=== PATIENT | male | born 1965 | race Caucasian/White ===

== ENCOUNTER 2024-11-01 11:52 | Inpatient (IN) | payer MEDICARE, OTHER ==
[~2024-11-01] VITALS: Ht 177.8 cm; Wt 97.1 kg
[2024-11-01 12:38] LABS: BASOPHILS # (AUTO) 0.1 K/UL (0.0-0.2); BASOPHILS % (AUTO) 0.9 % (0.0-2.0); EOSINOPHILS # (AUTO) 0.4 K/uL (0.0-0.7); EOSINOPHILS % (AUTO) 5.6 % (0.0-7.0); HEMATOCRIT 38.5 % (36.7-47.1); HEMOGLOBIN 12.8 g/dL (12.5-16.3); LYMPHOCYTES # (AUTO) 1.4 K/uL (0.8-4.8); LYMPHOCYTES % (AUTO) 20.8 % (20.5-51.5); MEAN CORPUSCULAR HEMOGLOBIN 28.9 uug (23.8-33.4); MEAN CORPUSCULAR HGB CONC 33 g/dL (32.5-36.3); MEAN CORPUSCULAR VOLUME 87.2 fL (73.0-96.2); MONOCYTES # (AUTO) 0.4 K/uL (0.1-1.30); MONOCYTES % (AUTO) 5.9 % (0.0-11.0); NEUTROPHILS # (AUTO) 4.6 K/uL (1.8-8.9); NEUTROPHILS % (AUTO) 66.8 % (38.5-71.5); PLATELET COUNT (AUTO) 472 K/uL (152-348); RED BLOOD CELL COUNT(AUTO) 4.42 MIL/uL (4.06-5.63); RED CELL DISTRIBUTION WIDTH 16.6 % (12.1-16.2); WHITE BLOOD COUNT (AUTO) 6.9 K/uL (3.6-10.2)
[2024-11-01 12:39] LABS: DIFFERENTIAL COMMENT 1
[2024-11-01 12:44] LABS: *BILIRUBIN,URIN NEGATIVE (NEGATIVE); *CLARITY,URINE CLEAR (CLEAR); *COLOR,URINE YELLOW (YELLOW); *KETONES,URINE NEGATIVE (NEGATIVE); *PROTEIN,URINE NEGATIVE (NEGATIVE); *UROBILINOGEN,URINE 0.2 E.U./dl (NORMAL); LEUKOCYTE ESTERASE ,URINE NEGATIVE (NEGATIVE); NITRITE, URINE NEGATIVE (NEGATIVE); PH,URINE 7.5 (5.0-8.0); UGLUCOSE NEGATIVE (NEGATIVE)
[2024-11-01 12:45] LABS: *BLOOD, URINE TRACE (NEGATIVE)
[2024-11-01 13:09] LABS: CALCIUM 9.1 mg/dL (8.5-10.1); CARBON DIOXIDE 31 mmol/L (21-32); CHLORIDE 100 mmol/L (98-107); CREATININE 1.2 mg/dL (0.6-1.3); GLUCOSE 129 mg/dL (74-106); RBC,URINE 0-3 /HPF (0-3); SODIUM SERUM 140 mmol/L (136-145); UREA NITROGEN, BLOOD 16 mg/dL (7-18); WBC,URINE 0-3 /HPF (0-3)
[2024-11-01] MEDS ORDERED: DOCU-141 PO (13:11)
[2024-11-01] MEDS ORDERED: ACET-3117 PO (13:11)
[2024-11-01] MEDS ORDERED: EMOL113C2 TP (13:11)
[2024-11-01] MEDS ORDERED: ASPI-1169 PO (13:11)
[2024-11-01] MEDS ORDERED: BENZ0.5T43 PO (13:11)
[2024-11-01] MEDS ORDERED: AMLO-212 PO (13:11)
[2024-11-01] MEDS ORDERED: DEXT50VI3 IV (13:11)
[2024-11-01] MEDS ORDERED: CITA20TA19 PO (13:11)
[2024-11-01 13:13] LABS: ETHANOL < 3 MG/DL (0-10)
[2024-11-01 13:14] LABS: *AMPHETAMINE, URINE NEGATIVE (NEGATIVE); *BARBITURATE, URINE NEGATIVE (NEGATIVE); *BENZODIAZEPINE, URINE NEGATIVE (NEGATIVE); *CANNABINOID, URINE NEGATIVE (NEGATIVE); *COCCAINE, URINE NEGATIVE (NEGATIVE); *OPIATE, URINE NEGATIVE (NEGATIVE); *PHENCYCLIDINE SCREEN,URINE NEGATIVE (NEGATIVE); FENTANYL, URINE NEGATIVE (NEGATIVE)
[2024-11-01 13:15] LABS: ACETAMINOPHEN < 2.0 ug/mL (10-30); ALANINE AMINOTRANSFERASE 16 U/L (16-63); ALBUMIN 3.6 g/dL (3.4-5.0); ALKALINE PHOSPHATASE 50 U/L (50-136); ASPARTATE AMINOTRANSFERASE 25 U/L (15-37); BILIRUBIN,DIRECT 0.1 mg/dL (0.0-0.2); BILIRUBIN,TOTAL 0.3 mg/dL (0.2-1.0); TOTAL PROTEIN, SERUM 8.8 g/dL (6.4-8.2)
[2024-11-01] MEDS ORDERED: DIPH25TA27 PO (13:37)
[2024-11-01] MEDS ORDERED: DIVA500T54 PO (13:37)
[2024-11-01] MEDS ORDERED: GLUC1KIT IJ (13:46)
[2024-11-01] MEDS ORDERED: FINA5TAB11 PO (13:46)
[2024-11-01] MEDS ORDERED: FENO145T21 PO (13:46)
[2024-11-01] MEDS ORDERED: BISA10SU12 RC (13:46)
[2024-11-01] MEDS ORDERED: GABA300C PO (13:46)
[2024-11-01] MEDS ORDERED: NA P133E RC (13:46)
[2024-11-01] MEDS ORDERED: DONE10TA44 PO (13:46)
[2024-11-01] MEDS ORDERED: DEXT38GE12 PO (13:53)
[2024-11-01] MEDS ORDERED: INSU100V28 (14:07)
[2024-11-01] MEDS ORDERED: FURO40TA5 PO (14:19)
[2024-11-01] MEDS ORDERED: ATOR20TA PO (14:19)
[2024-11-01] MEDS ORDERED: MIRT7.5T10 PO (14:19)
[2024-11-01] MEDS ORDERED: MAGN400O6 PO (14:19)
[2024-11-01] MEDS ORDERED: LEVO75TA7 PO (14:19)
[2024-11-01] MEDS ORDERED: METF-442 PO (14:19)
[2024-11-01] MEDS ORDERED: MELA10TA PO (14:19)
[2024-11-01] MEDS ORDERED: QUET300T2 PO (14:28)
[2024-11-01] MEDS ORDERED: THIO10CA2 PO (14:28)
[2024-11-01] MEDS ORDERED: MULT-225 PO (14:28)
[2024-11-01] MEDS ORDERED: PSEU120T99 PO (14:28)
[2024-11-01] MEDS ORDERED: TERA2CAP4 PO (14:28)
[2024-11-01] MEDS ORDERED: PIOG30TA10 PO (14:28)
[2024-11-01] MEDS ORDERED: NYST15CR TP (14:28)
[2024-11-01] MEDS: BLOOD SUGAR DIAGNOSTIC 1 EACH STRIP VI ONE (16:45)
[2024-11-01] MEDS ORDERED: MAGNESIUM HYDROXIDE 30 ML LIQUID UDC PO PRN (16:45)
[2024-11-01] MEDS ORDERED: QUETIAPINE FUMARATE 25 MG TABLET PO PRN (16:45)
[2024-11-01] MEDS ORDERED: MAG HYDROX/AL HYDROX/SIMETH 30 ML LIQUID UDC PO PRN (16:45)
[2024-11-01] MEDS ORDERED: ACET325T53 PO (16:49)
[2024-11-01] MEDS ORDERED: BISACODYL 10 MG SUPP.RECT RC PRN (17:45)
[2024-11-01 20:13] VITALS: BP 134/74; TEMP 98.1; O2SAT 98
[2024-11-01] MEDS ORDERED: ZOLPIDEM 5 MG TABLET PO PRN (20:45)
[2024-11-01] MEDS: ATORVASTATIN 20 MG TABLET PO SCH (21:29)
[2024-11-01] MEDS: TERAZOSIN 1 MG CAPSULE PO SCH (21:29)
[2024-11-01] MEDS: PERMETHRIN 5% CREAM 60 GM TUBE TP ONE (21:31)
[2024-11-02 06:43] LABS: BASOPHILS # (AUTO) 0.1 K/UL (0.0-0.2); BASOPHILS % (AUTO) 0.9 % (0.0-2.0); EOSINOPHILS # (AUTO) 0.5 K/uL (0.0-0.7); EOSINOPHILS % (AUTO) 8.1 % (0.0-7.0); HEMATOCRIT 36.3 % (36.7-47.1); HEMOGLOBIN 12.1 g/dL (12.5-16.3); LYMPHOCYTES # (AUTO) 1.4 K/uL (0.8-4.8); LYMPHOCYTES % (AUTO) 21.3 % (20.5-51.5); MEAN CORPUSCULAR HEMOGLOBIN 28.7 uug (23.8-33.4); MEAN CORPUSCULAR HGB CONC 33 g/dL (32.5-36.3); MEAN CORPUSCULAR VOLUME 86.4 fL (73.0-96.2); MONOCYTES # (AUTO) 0.5 K/uL (0.1-1.30); MONOCYTES % (AUTO) 8.3 % (0.0-11.0); NEUTROPHILS % (AUTO) 61.4 % (38.5-71.5); PLATELET COUNT (AUTO) 449 K/uL (152-348); RED CELL DISTRIBUTION WIDTH 16.2 % (12.1-16.2); WHITE BLOOD COUNT (AUTO) 6.6 K/uL (3.6-10.2)
[2024-11-02] MEDS: LEVOTHYROXINE SODIUM 75 MCG TABLET PO SCH (06:55)
[2024-11-02 07:02] LABS: DIFFERENTIAL COMMENT 1
[2024-11-02 07:29] LABS: BILIRUBIN,TOTAL 0.2 mg/dL (0.2-1.0); CALCIUM 8.5 mg/dL (8.5-10.1); CREATININE 1.3 mg/dL (0.6-1.3); POTASSIUM 4.6 mmol/L (3.5-5.1); TOTAL PROTEIN, SERUM 7.3 g/dL (6.4-8.2)
[2024-11-02 07:44] VITALS: BP 136/69; TEMP 98; O2SAT 98
[2024-11-02] MEDS: FINASTERIDE 5 MG TABLET PO SCH (08:28)
[2024-11-02] MEDS: ASPIRIN 81 MG TAB.CHEW PO SCH (08:28)
[2024-11-02] MEDS: DOCUSATE SODIUM 100 MG CAPSULE PO SCH (08:28)
[2024-11-02] MEDS: AMLODIPINE 5 MG TABLET PO SCH (08:28)
[2024-11-02] MEDS: GABAPENTIN 300 MG CAPSULE PO SCH (08:29)
[2024-11-02] MEDS: FUROSEMIDE 40 MG TABLET PO SCH (08:30)
[2024-11-02] MEDS: FENOFIBRATE NANOCRYSTALLIZED 145 MG TABLET PO SCH (08:30)
[2024-11-02] MEDS: PIOGLITAZONE HCL 15 MG TABLET PO SCH (08:31)
[2024-11-02] MEDS ORDERED: PIOGLITAZONE HCL 30 MG PO SCH (09:00)
[2024-11-02] MEDS ORDERED: THIOTHIXENE 10 MG CAPSULE PO SCH (09:00)
[2024-11-02] MEDS ORDERED: GABAPENTIN 300 MG CAPSULE PO SCH (09:00)
[2024-11-02] MEDS: risperiDONE 0.5 MG TABLET PO SCH (11:55)
[2024-11-02] MEDS ORDERED: DEXTROSE 50% 50 ML DISP.SYRIN IV PRN (13:45)
[2024-11-02] MEDS ORDERED: DIVALPROEX 125 MG TABLET.DR PO SCH (14:00)
[2024-11-02] MEDS: DIVALPROEX 250 MG TABLET.DR PO SCH (15:42)
[2024-11-02] MEDS: BLOOD SUGAR DIAGNOSTIC 1 EACH STRIP VI SCH (16:40)
[2024-11-02] MEDS: diphenhydrAMINE 25 MG CAP PO PRN (18:18)
[2024-11-03] VITALS (7 sets, daily range): BP systolic 120–134; BP diastolic 62–70; TEMP 98–99; O2SAT 95–99
[2024-11-03] MEDS: ACETAMINOPHEN 325 MG TABLET PO PRN (05:36)
[2024-11-03] MEDS: ALBUTEROL SULFATE 2.5 MG/3 ML NEBU NEB PRN (07:53)
[2024-11-03] MEDS: IPRATROPIUM BROMIDE 0.5 MG/2.5 ML NEBU NEB PRN (07:53)
[2024-11-03] MEDS: GLUCERNA SHAKE 237 ML CAN PO SCH (09:06)
[2024-11-03] MEDS: risperiDONE 0.5 MG TABLET PO ONE (11:01)
[2024-11-03] MEDS: INSULIN REGULAR, HUMAN 1000 UNIT/10 ML VIAL SQ PRN (11:38)
[2024-11-03] MEDS: risperiDONE 0.5 MG TABLET PO SCH (20:53)
[2024-11-04 08:02] VITALS: BP 129/72; TEMP 98.3; O2SAT 96
[2024-11-04] MEDS: PROPRANOLOL HCL 10 MG TABLET PO SCH (13:15)
[2024-11-04] MEDS: DIVALPROEX 500 MG TABLET.DR PO SCH (13:57)
[2024-11-04] MEDS: BENZTROPINE MESYLATE 0.5 MG TABLET PO SCH (13:59)
[2024-11-04] MEDS ORDERED: DIVALPROEX 250 MG TABLET.DR PO SCH (14:00)
[2024-11-04 16:02] VITALS: BP 141/76; TEMP 98.6; O2SAT 99
[2024-11-04] MEDS: TRAMADOL HCL 50 MG TABLET PO ONE (20:01)
[2024-11-04] MEDS: risperiDONE 2 MG TABLET PO SCH (20:22)
[2024-11-04] MEDS ORDERED: risperiDONE 0.5 MG TABLET PO SCH (21:00)
[2024-11-04 21:18] VITALS: BP 119/52; TEMP 98; O2SAT 100
[2024-11-05 08:37] VITALS: BP 108/56; TEMP 98; O2SAT 98
[2024-11-05 16:27] VITALS: BP 138/57; TEMP 98; O2SAT 98
[2024-11-05 20:00] VITALS: BP 109/59; TEMP 98.9; O2SAT 97
[2024-11-06 08:31] VITALS: BP 142/54; TEMP 98.2; O2SAT 99
[2024-11-06 15:33] VITALS: BP 114/73; TEMP 98; O2SAT 96
[2024-11-06 20:18] VITALS: BP 114/59; TEMP 98; O2SAT 98
[2024-11-06 21:10] VITALS: BP 136/61
[2024-11-06] MEDS: ZOLPIDEM 5 MG TABLET PO PRN (21:59)
[2024-11-07 08:00] VITALS: BP 114/60; TEMP 97.5; O2SAT 97
[2024-11-07] MEDS ORDERED: DIVALPROEX 125 MG TABLET.DR PO SCH (14:00)
[2024-11-07] MEDS: DIVALPROEX 500 MG TABLET.DR PO SCH (14:02)
[2024-11-07 16:41] VITALS: BP 127/58; TEMP 97.6; O2SAT 98
[2024-11-07 20:00] VITALS: BP 111/73; TEMP 98.4; O2SAT 97
[2024-11-07] MEDS: DIVALPROEX 250 MG TABLET.DR PO SCH (20:30)
[2024-11-07] MEDS: risperiDONE 1 MG TABLET PO SCH (20:30)
[2024-11-07] MEDS ORDERED: DIVALPROEX 500 MG TABLET.DR PO SCH (21:00)
[2024-11-08 08:24] VITALS: BP 127/94; TEMP 98.1; O2SAT 98
[2024-11-08] MEDS: risperiDONE 2 MG TABLET PO SCH (08:26)
[2024-11-08 16:30] VITALS: BP 134/72; TEMP 98; O2SAT 98
[2024-11-08 19:57] VITALS: BP 117/42; TEMP 97.5; O2SAT 97
[2024-11-09 08:03] VITALS: BP 135/46; TEMP 98; O2SAT 98
[2024-11-09] MEDS: risperiDONE 2 MG TABLET PO SCH (09:04)
[2024-11-09 15:24] VITALS: BP 115/58; TEMP 98; O2SAT 98
[2024-11-09 19:57] VITALS: BP 100/42; TEMP 98.1; O2SAT 97
[2024-11-10 08:05] VITALS: BP 129/64; TEMP 98; O2SAT 98
[2024-11-10 15:48] VITALS: BP 136/62; TEMP 98; O2SAT 98
[2024-11-10 20:00] VITALS: BP 120/88; TEMP 97.9; O2SAT 97
[2024-11-11 08:20] VITALS: BP 132/70; TEMP 98; O2SAT 97
[2024-11-11] MEDS: DIVALPROEX 250 MG TABLET.DR PO SCH (14:03)
[2024-11-11 16:25] VITALS: BP 98/48; TEMP 98; O2SAT 100
[2024-11-11] MEDS: PERMETHRIN 5% CREAM 60 GM TUBE TP ONE (17:00)
[2024-11-11 20:12] VITALS: BP 121/83; TEMP 98.1; O2SAT 96
[2024-11-11] MEDS ORDERED: TERAZOSIN 1 MG CAPSULE ONE (23:41)
[2024-11-12 08:24] VITALS: BP 114/61; TEMP 97.9; O2SAT 96
[2024-11-12] MEDS: METHOCARBAMOL 500 MG TABLET PO SCH (12:13)
[2024-11-12 16:34] VITALS: BP 112/52; TEMP 98; O2SAT 97
[2024-11-12 20:10] VITALS: BP 109/58; TEMP 98.1; O2SAT 98
[2024-11-13 07:45] VITALS: BP 145/70; TEMP 98; O2SAT 98
[2024-11-13 13:30] VITALS: BP 111/57; O2SAT 99
[2024-11-13] MEDS: METHOCARBAMOL 500 MG TABLET PO SCH (14:12)
[2024-11-13 15:07] VITALS: BP 92/56; TEMP 98.2; O2SAT 99
[2024-11-13 20:04] VITALS: BP 118/50; TEMP 98.2; O2SAT 99
[2024-11-14 08:24] VITALS: BP 116/65; TEMP 97.8; O2SAT 97
[2024-11-14 16:28] VITALS: BP 102/49; TEMP 98; O2SAT 96
[2024-11-14 20:00] VITALS: BP 119/50; TEMP 98.1; O2SAT 95
[2024-11-15 08:30] VITALS: BP 120/69; TEMP 98.2; O2SAT 95
[2024-11-15] MEDS: DIVALPROEX 125 MG TABLET.DR PO ONE (11:57)
[2024-11-15] MEDS: DIVALPROEX 500 MG TABLET.DR PO SCH (13:46)
[2024-11-15] MEDS ORDERED: DIVALPROEX 250 MG TABLET.DR PO SCH (14:00)
[2024-11-15 16:47] VITALS: BP 126/89; TEMP 98.3; O2SAT 95
[2024-11-15 19:54] VITALS: BP 123/80; TEMP 98.4; O2SAT 96
[2024-11-16 08:07] VITALS: BP 128/62; TEMP 98; O2SAT 98
[2024-11-16 12:07] VITALS: BP 100/58; O2SAT 98
[2024-11-16 15:28] VITALS: BP 112/53; TEMP 98; O2SAT 98
[2024-11-16 23:50] VITALS: BP 111/57; TEMP 98.3; O2SAT 97
[2024-11-17 08:50] VITALS: BP 137/61; TEMP 98; O2SAT 98
[2024-11-17 15:55] VITALS: BP 135/54; TEMP 98; O2SAT 98
[2024-11-17 17:20] VITALS: BP 135/54
== END 2024-11-17 17:45 | DRG 885 ==
LOC: ER 11:52 → GPS 15:56
PROVIDERS: ADMIT Psychiatry & Neurology Psychiatry; ATTEND Nurse Practitioner Acute Care
DX: F20.0 Paranoid schizophrenia (principal); I11.0 Hypertensive heart disease with heart failure; E44.1 Mild protein-calorie malnutrition; R45.851 Suicidal ideations; F03.93 Unspecified dementia, unspecified severity, with mood disturbance; I50.32 Chronic diastolic (congestive) heart failure; F03.911 Unspecified dementia, unspecified severity, with agitation; G40.909 Epilepsy, unspecified, not intractable, without status epilepticus; E88.09 Other disorders of plasma-protein metabolism, not elsewhere classified; F94.0 Selective mutism; N40.0 Benign prostatic hyperplasia without lower urinary tract symptoms; E66.9 Obesity, unspecified; B86 Scabies; E78.5 Hyperlipidemia, unspecified; J44.9 Chronic obstructive pulmonary disease, unspecified; Z88.2 Allergy status to sulfonamides; E03.9 Hypothyroidism, unspecified; E11.9 Type 2 diabetes mellitus without complications; Z68.30 Body mass index [BMI] 30.0-30.9, adult; Z79.899 Other long term (current) drug therapy; Z79.82 Long term (current) use of aspirin; Z72.0 Tobacco use
CPT/HCPCS: 36415; 71045; 73610; 80164; 85025; 93005; 94640; 94664; 94760; A4606; A4663; G0480; J1815; J3490; J3590; Q0163